=== PATIENT | female | born 1950 | race Caucasian/White ===

== ENCOUNTER 2023-04-08 10:29 | Observation (INO) | payer MEDICARE, OTHER, SELFPAY ==
--- NOTE | ~2023-04-08 | CT_ITS ---
EXAMINATION: CT ABDOMEN AND PELVIS WITHOUT CONTRAST CLINICAL INFORMATION: Right lower quadrant pain. COMPARISON: None available. TECHNIQUE: Multidetector volumetric imaging was performed from the superior aspect of the liver through the pubic symphysis. Sagittal and coronal reformatted images were obtained on the technologist's workstation. Patient reports allergy to intravenous contrast. This CT examination was performed using dose optimization techniques as appropriate, variously including the following: *Automated exposure control *Adjustment of mA and/or kV according to patient size (this includes techniques or standardized protocols for targeted exams where dose is matched to indication/reason for exam; i.e. extremities or head) *Use of iterative reconstruction technique DLP: 717 mGy-cm FINDINGS: LUNG BASES: 4 mm groundglass nodule right lower lobe on image 2 of series 8. LIVER, GALLBLADDER, AND BILIARY TREE: The noncontrast liver is normal in size and contour. No biliary ductal dilatation is present. The gallbladder is surgically absent. PANCREAS: Unremarkable. SPLEEN: Unremarkable. ADRENAL GLANDS: Unremarkable. KIDNEYS AND URETERS: The kidneys are symmetric in size. No renal calculus. Left renal cysts. No further routine imaging follow-up is needed. No hydronephrosis. No perinephric stranding. BLADDER: Unremarkable. GASTROINTESTINAL TRACT: Small and large bowel loops are of normal caliber. No small bowel obstruction. Diverticular disease of the colon. ABDOMINAL WALL: Asymmetric expansion and hyperdensity within the right rectus abdominis muscle measuring 2.7 x 4.8 cm transaxially. This may represent a rectus sheath hematoma. LYMPH NODES: No bulky lymphadenopathy. VASCULAR: Normal caliber abdominal aorta. There is an infrarenal IVC filter in place. PELVIC VISCERA: Cervical nabothian cysts. OSSEOUS STRUCTURES: No destructive bone lesions. CT/CT abdomen pelvis wo IV con IMPRESSION: Probable right rectus sheath hematoma measuring 2.7 x 4.8 cm. Advise clinical correlation and follow-up imaging.
[2023-04-08 11:01] VITALS: BP 170/72; PULSE 89; RESP 17; TEMP 36.3; O2SAT 94; BMI 34.1
--- NOTE | 2023-04-08 11:04 | ED.GENADULT ---
HPI - General Adult General Chief complaint: Abdominal Pain Stated complaint: R side abd pain Time Seen by Provider: 04/08/23 14:18 Source: patient, family, RN notes reviewed and old records reviewed Mode of arrival: ambulatory History of Present Illness HPI narrative: 72-year-old female with past medical history of appendectomy, cholecystectomy, on Coumadin for DVT s/p IVC filter, presenting to the ED complaining of RLQ abdominal pain x4 days, worsening today w/palpable lump. Admits to upper respiratory symptoms last week with persistent cough. Denies injury/trauma or fall. Denies fever/chills, nausea/vomiting, diarrhea/constipation, dysuria/hematuria. Onset (ago): day(s) Related Data Home Medications Medication Instructions Recorded Confirmed albuterol sulfate 90 mcg/actuation 2 puff inhalation QID PRN wheezing 04/08/23 04/08/23 aerosol inhaler lorazepam 1 mg tablet 1 mg PO BEDTIME PRN Insomnia 04/08/23 04/08/23 metoprolol tartrate 25 mg tablet 12.5 mg PO BEDTIME 04/08/23 04/08/23 tramadol 50 mg tablet 50 mg PO Q12H PRN pain 04/08/23 04/08/23 warfarin 5 mg tablet 2.5 mg PO SUTUTHSA@1800 04/08/23 04/08/23 warfarin 5 mg tablet 5 mg PO MOWEFR@1800 04/08/23 04/08/23 Allergies Allergy/AdvReac Type Severity Reaction Status Date / Time Iodinated Contrast Media Allergy Difficulty Verified 04/08/23 14:41 Breathing Review of Systems Review of Systems: Constitutional: No Fever, No Chills ENT/Mouth: No Ear Pain, No Nasal Congestion, No Sinus Pain, No Hoarseness, No sore throat, No Rhinorrhea, No Swallowing Difficulty Cardiovascular: No Chest Pain, No SOB Respiratory: No Cough, No Sputum, No Wheezing Gastrointestinal: No Nausea, No Vomiting, No Diarrhea, No Constipation, +Abdominal pain Genitourinary: No Dysuria, No Urinary Frequency, No Hematuria, No Urinary Incontinence/retention, No Flank Pain Musculoskeletal: No joint pain, No Myalgias, No Joint Swelling Skin: No Skin Lesions, No rash Neuro: No Weakness Yes all other systems are reviewed and are negative Constitutional: Constitutional: Reports as per [facility] Past Medical History Attestation statement: The following information was validated with the patient. Source: old records reviewed Onset Date is defined in the Problem List Problems that require an onset date and time if occurred within 24 hrs of arrival to the ED Aortic Dissection and Rupture; Neurologic impairment; Cardiopulmonary Arrest; Endotracheal Intubation; Insertion or Replacement of Mechanical Circulatory Assist Device Social History Social History Advance Directives: No Advance Directives Information Provided: Yes Physical Exam ED Vital Signs: Vital Signs - 24 hr 04/08/23 11:01 04/08/23 14:35 04/08/23 15:44 Temperature 97.4 F Pulse Rate 89 Respiratory Rate 17 16 15 Blood Pressure 170/72 H Pulse Oximetry 94 Oxygen Delivery Method Room Air BMI result Body Mass Index 34.1 Const General: cooperative, healthy appearing and no acute distress Orientation/consciousness: patient oriented x3 Limitations: no limitations HENMT Head: Yes normal to inspection and Yes atraumatic Ears: hearing grossly normal bilaterally General nose exam: Normal external nose present Face and sinus: Yes normal facial exam Eyes General: appearance normal, both eyes and all related structures EOM: EOMs intact bilaterally Neck Neck: Yes normal visual inspection and Yes no meningeal signs Resp Effort & Inspection: normal respiratory effort and no respiratory distress Auscultation: clear to auscultation bilaterally Cardio Rate: regular rate Heart sounds: S1 normal heart sound present and S2 normal heart sound present GI Inspection: Yes normal to inspection Palpation (GI): Soft to palpation, Tenderness to palpation present (GI) in the RLQ and other (+palpable lump), no guarding and not rigid Skin Rashes: no rashes Wounds: no wounds Neuro General: patient oriented x3, tone normal and no meningeal signs Cranial nerves: Yes CN's II-XII intact bilaterally Gait exam (Neuro): Normal gait present Extrem General: Yes normal to inspection Course Course Course Narrative: RME performed by Alejandra Dunbar PA-C. Patient is a 72 year old assigned female at presenting to the emergency department with RLQ abdominal pain. Patient has a history of appendectomy and cholecystectomy. Detailed physical exam and review of systems are deferred to the psychiatric clinician. Labs ordered. Patient placed back in the waiting room pending room availability and results. -labs reassuring, no leukocytosis. INR 2.8 -UA contaminated however appears infected > will give empiric IV Rocephin CT abdomen pelvis wo IV con IMPRESSION: Probable right rectus sheath hematoma measuring 2.7 x 4.8 cm. Advise clinical correlation and follow-up imaging > case discussed with General surgery, Dr. Carranza states hematoma is contained in non operative management at this time. Patient is still in pain, plan to admit for further management Medications Administered Discontinued Medications Generic Name Dose Route Start Last Admin Trade Name Freq PRN Reason Stop Dose Admin Sodium Chloride 1,000 mls @ 999 mls/hr 04/08/23 14:30 04/08/23 14:39 Ns IV 04/08/23 15:30 999 mls/hr .Q1H1M [place] Administration Ceftriaxone Sodium 1 gm/ 50 mls @ 100 mls/hr 04/08/23 14:19 04/08/23 16:25 Sodium Chloride IV 04/08/23 14:48 Infused ONCE ONE Infusion Morphine Sulfate 2 mg 04/08/23 14:24 04/08/23 14:35 Morphine Sulfate 2 Mg/Ml Cartridge IVPUSH 04/08/23 14:25 2 mg ONCE ONE Administration Protocol Morphine Sulfate 2 mg 04/08/23 15:24 04/08/23 15:44 Morphine Sulfate 2 Mg/Ml Cartridge IVPUSH 04/08/23 15:25 2 mg ONCE ONE Administration Protocol Medical Decision Making Medical Decision Making MDM Narrative: 72-year-old female with past medical history of appendectomy, cholecystectomy, on Coumadin for DVT s/p IVC filter, presenting to the ED complaining of RLQ abdominal pain x4 days, worsening today w/palpable lump. On exam vital signs stable, NAD, appears very uncomfortable, tearful, abdomen soft with RLQ palpable lump with exquisite tenderness. No overlying erythema, no fluctuance/induration. Concern for incarcerated/strangulated hernia vs colitis/diverticulitis. Lower suspicion for pancreatitis, renal stone/pyelo. Lower suspicion for ischemic bowel at this time Plan: Labs, UA, lactic/blood cultures, CT, IV pain medication Please refer to course for remaining clinical decision making, interpretation of labs/imaging results, and discussions with consultants and/or family members. Differential Diagnosis Differential Diagnoses: The differential diagnosis associated with the presentation includes As above Admission/Observation Consideration of admission/observation: Escalation of care including admission/observation considered Lab Data MDM Lab Attestation statement: I reviewed the patient's lab results. 04/08/23 11:19 04/08/23 11:19 Labs: Lab Results 04/08/23 04/08/23 Range/Units 11:19 14:35 WBC 8.0 (4.8-10.8) X10*3/uL RBC 4.73 (4.20-5.50) X10*6/uL Hgb 13.4 (12.0-16.0) g/dl Hct 40.2 (37.0-47.0) % MCV 85.0 (80.0-98.0) fL MCH 28.3 (27.0-33.0) pg MCHC 33.3 (31.0-35.0) g/dl RDW 13.2 (11.0-16.0) % Plt Count 187 (160-400) X10*3/uL MPV 9.6 (9.4-12.3) fL Immature Gran % (Auto) 0.3 (0.0-0.4) % Neut % (Auto) 63.0 (45-73) % Lymph % (Auto) 24.0 (20-40) % [place] % (Auto) 10.1 (2-11) % Eos % (Auto) 1.6 (0-4) % Baso % (Auto) 1.0 (0-2) % Lymph # (Auto) 1.9 (1.2-4.9) X10*3/uL [place] # (Auto) 0.8 (0.1-1.2) X10*3/uL Eos # (Auto) 0.1 (0.0-0.4) X10*3/uL Baso # (Auto) 0.1 (0.0-0.2) X10*3/uL Abs Immat Gran (auto) 0.02 (0.00-0.03) X10*3/uL Absolute Neuts (auto) 5.0 (2.0-8.3) x10*3/uL Absolute Nucleated RBC 0.000 (0.0-0.012) X10*3/uL Nucleated RBC % (auto) 0.0 (0.0-0.2) /100WBC PT 34.1 H (11.1-13.3) SEC INR 2.8 H (0.9-1.1) Sodium 140 (135-145) mmol/L Potassium 3.9 (3.3-5.1) mmol/L Chloride 106 (96-108) mmol/L Carbon Dioxide 24 (22-29) mmol/L Anion Gap 14 (12-20) BUN 13 (9-16) mg/dL Creatinine 0.94 (0.5-1.4) mg/dL Estim Creat Clear Calc 59.8 Estimated GFR 59 Random Glucose 103 (60-115) mg/dL Lactic Acid 1.0 (0.5-2.0) mmol/L Calcium 9.0 (8.4-10.2) mg/dL Magnesium 2.3 (1.6-2.6) mg/dL Total Bilirubin 0.5 (0.0-1.0) mg/dL AST 21 (5-31) U/L ALT 30 (0-31) U/L Alkaline Phosphatase 72 (39-117) U/L Total Protein 7.3 (6.5-8.0) g/dL Albumin 3.9 (3.5-5.0) g/dL Lipase 21 (8-78) U/L Urine Color Yellow Urine Appearance Turbid Urine pH 5.5 (5.0-9.0) Ur Specific [place] 1.020 (1.005-1.025) Urine Protein Trace (Neg-Trace) mg/dL Urine Glucose (UA) Negative (Negative) mg/dL Urine Ketones Trace (Negative) mg/dL Urine Blood Trace H (Negative) Urine Nitrite Positive H (Negative) Ur Leukocyte Esterase Large (3+) H (Negative) Urine RBC 0-2 (0-2) /HPF Urine WBC >50 H (0-5) /HPF Ur Squamous Epith Cells 11-20 (0-2) /HPF Urine Bacteria 4+ (None Seen) Hyaline Casts 3-5 (0-2) /LPF Independent Interpretation I performed an independent interpretation of an: CT Scan Radiology Impression Discussion of test interpretation with radiology: I have reviewed the radiologist's reading. Independent Historian Clinical information obtained from an independent historian. History obtained from or confirmed by: Other (daughter) External Record Review External record reviewed: Inpatient record, Office record, Outpatient record, Prior outpatient labs, Prior outpatient radiology, Primary care record and Outside ED record Tests considered The following testing was considered but not selected: As above Prescription Management I considered prescription management with: Pain Medication Critical Care Time Critical Care Time Critical Care Time: Yes Total Critical Care Time: 35 Attestation: I have personally provided critical care time exclusive of time spent on separately billable procedures. Time includes review of lab data, radiology results, discussion with consultants, and monitoring for potential decompensation. Intervention performed as documented. Discharge Plan Discharge Clinical Impression: Rectus sheath hematoma, Acute UTI Patient Disposition: Admitted As Inpatient
[2023-04-08 11:43] LABS: Alanine Aminotransferase 30 U/L (0-31); Albumin Level 3.9 g/dL (3.5-5.0); Alkaline Phosphatase 72 U/L (39-117); Anion Gap 14 (12-20); Aspartate Amino Transferase 21 U/L (5-31); Bilirubin Total 0.5 mg/dL (0.0-1.0); Blood Urea Nitrogen 13 mg/dL (9-16); Carbon Dioxide 24 mmol/L (22-29); Chloride 106 mmol/L (96-108); Creatinine Clr Calc Pharmacy 59.8; Estimated Glomerular Filt Rate 59; Glucose Random 103 mg/dL (60-115); Magnesium 2.3 mg/dL (1.6-2.6); Potassium 3.9 mmol/L (3.3-5.1); Sodium 140 mmol/L (135-145); Total Protein 7.3 g/dL (6.5-8.0)
[2023-04-08 14:35] VITALS: RESP 16
[2023-04-08 15:44] VITALS: RESP 15
--- NOTE | 2023-04-08 16:22 | P.HPHOSP_ITS ---
History of Present Illness Date of Service: 04/08/23 Chief Complaint: abdominal pain 72 year old female with 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 No fever, no diarrhea. CT of abdomen and pelvis in ED show a Probable right rectus sheath hematoma measuring 2.7 x 4.8 cm. CBC is normal, INR is 2.8 Review of Systems 2 Review of Systems: Gen: no fever Resp: no sob, no cough CV: no chest, no [place], no leg edema GI: No n/v,+ abd pain Neuro: No confusion PMFSH Social History Smoked in Last 30 Days: No Use of substances other than those prescribed or required for medical reasons: No Advance Directives: Yes Advance Directives Information Provided: Yes Advance Directives on File: Yes Advance Directives Date on File: 04/08/23 Meds Allergies Allergy/AdvReac Type Severity Reaction Status Date / Time Iodinated Contrast Media Allergy Difficulty Verified 04/08/23 14:41 Breathing Home Medications Medication Instructions Recorded Confirmed Last Taken Type albuterol sulfate 90 mcg/actuation 2 puff inhalation QID PRN wheezing 04/08/23 04/08/23 Unknown History aerosol inhaler lorazepam 1 mg tablet 1 mg PO BEDTIME PRN Insomnia 04/08/23 04/08/23 Unknown History metoprolol tartrate 25 mg tablet 12.5 mg PO BEDTIME 04/08/23 04/08/23 04/07/22 History tramadol 50 mg tablet 50 mg PO Q12H PRN pain 04/08/23 04/08/23 Unknown History warfarin 5 mg tablet 2.5 mg PO SUTUTHSA@1800 04/08/23 04/08/23 04/07/22 History warfarin 5 mg tablet 5 mg PO MOWEFR@1800 04/08/23 04/08/23 04/07/22 History Physical Exam 2 Vital Signs and Narrative: Vital Signs: Last Vital Signs Temp 97.4 F 04/08/23 11:01 Pulse 89 04/08/23 11:01 Resp 15 04/08/23 15:44 BP 170/72 H 04/08/23 11:01 Pulse Ox 94 04/08/23 11:01 O2 Del Method Room Air 04/08/23 11:01 BMI result Body Mass Index 34.1 Const: Other: Constitutional: Alert, in no distress, overweight. Mental Status: Oriented to person, place and time. Eyes: Pupils are equal, round and reactive to light. Ear, Nose and Throat: Oropharynx clear, mucous membranes moist. Ears and nose without eformities. Trachea midline. Respiratory: Clear to auscultation. No wheezing, rales or rhonchi. Cardiovascular: S1 S2 regular. No murmurs, rubs or gallops. Gastrointestinal: Abdomen soft, lower abdomen tenderness texture of lump, no bruse, non-distended. Normal bowel sounds.? Neurologic: Cranial nerves II-XII grossly intact. No focal neurological deficits. Moves all extremities spontaneously.? Skin: No rashes or lesions.? Musculoskeletal: No cyanosis or clubbing. Psychiatric: Normal mood and affect? Results Labs 04/09/23 08:32 04/08/23 11:19 Labs: Laboratory Results - last 24 hr 04/08/23 04/08/23 11:19 14:35 MCV 85.0 MCH 28.3 MCHC 33.3 RDW 13.2 Plt Count 187 MPV 9.6 Immature Gran % (Auto) 0.3 Neut % (Auto) 63.0 Lymph % (Auto) 24.0 [place] % (Auto) 10.1 Eos % (Auto) 1.6 Baso % (Auto) 1.0 Lymph # (Auto) 1.9 [place] # (Auto) 0.8 Eos # (Auto) 0.1 Baso # (Auto) 0.1 Abs Immat Gran (auto) 0.02 Absolute Neuts (auto) 5.0 Absolute Nucleated RBC 0.000 Nucleated RBC % (auto) 0.0 PT 34.1 H INR 2.8 H Anion Gap 14 Estim Creat Clear Calc 59.8 Estimated GFR 59 Random Glucose 103 Lactic Acid 1.0 Calcium 9.0 Magnesium 2.3 Total Bilirubin 0.5 AST 21 ALT 30 Alkaline Phosphatase 72 Total Protein 7.3 Albumin 3.9 Lipase 21 Urine Color Yellow Urine Appearance Turbid Urine pH 5.5 Ur Specific [place] 1.020 Urine Protein Trace Urine Glucose (UA) Negative Urine Ketones Trace Urine Blood Trace H Urine Nitrite Positive H Ur Leukocyte Esterase Large (3+) H Urine RBC 0-2 Urine WBC >50 H Ur Squamous Epith Cells 11-20 Urine Bacteria 4+ Hyaline Casts 3-5 Imaging Radiologist's Impressions: Impressions Abdomen/Pelvis CT 04/08/23 14:53 IMPRESSION: Probable right rectus sheath hematoma measuring 2.7 x 4.8 cm. Advise clinical correlation and follow-up imaging. Assessment and Plan (1) Rectus sheath hematoma: Status: Acute (2) Acute UTI: Status: Acute Plan Rectal sheet hematoma 2.7 x 4.8, no anemia.. likely from cough -hold coumadin, follow CBC, if enalerging hematoma consult surgery and reverse INR, morphine for pain Abdominal pain d/t above, morphine or dilaudid PRn Uncomplicated UTI got Ceftriaxone in ED, will continue oral Ceftin 250 bid tomorrow dvt prophylaxis INR is high, no heparin or lovenox obs until tomorrow Quality Stroke Does the patient have a stroke diagnosis?: No VTE Prior VTE?: Yes VTE Risk Level:: Medical - moderate - high VTE Device Contraindication: Treatment Not Indicated VTE Drug Contraindication: Treatment Not Indicated
[2023-04-08] MEDS: HYDROmorphone HCl 0.5 MG/0.5 ML SYRINGE IVPUSH (18:21)
--- NOTE | 2023-04-08 19:09 | PC.NURSE ---
PT medicated as per MAR> placed purewick due to pain while walking and narcotic. Report and handoff given to JASPER Mccormack
--- NOTE | 2023-04-08 21:10 | MHC.CM.ED ---
CM met with patient at her request to complete a HCP. Pt requests 2 daughter be made HCP, as her has had a stroke and doesn't process things well. HCP reviewed, signed, and completed. Copies given. Uploaded into [employer] and [employer].
--- NOTE | 2023-04-08 21:36 | PC.NURSE ---
this nurse assumed care of pt at 2100. met with pt , pt complians of pain, requests APAP. pt also stated that she hasnt slept in days, is her husbands caregiver who recently suffered a stroke, pt son is home. offered prn med for insomnia, pt willing to try ativan.
[2023-04-08] MEDS: LORazepam 1 MG TABLET PO (21:40)
[2023-04-08] MEDS: Metoprolol Tartrate 12.5 MG HALFTAB PO (21:44)
[2023-04-08 21:46] VITALS: BP 165/52; PULSE 64; RESP 14; TEMP 37; O2SAT 95
--- NOTE | 2023-04-08 23:40 | MHC.EDTECH ---
This tech took over care of patient at 2300, hourly rounds completed,patient has a pure-wick in place done by the pervious shift,patient is clean and dry. Belonging list completed.
[2023-04-09] MEDS: 0.9 % Sodium Chloride Flush 3 ML SYRINGE IVFLUSH ×2 (00:21→07:25)
[2023-04-09] MEDS: HYDROmorphone HCl 0.5 MG/0.5 ML SYRINGE IVPUSH ×4 (00:22→21:16)
--- NOTE | 2023-04-09 00:24 | PC.NURSE ---
Pt medicated for 8/10 pain with Dilaudid, resting comfortably in bed. Aware of plan to admit.
[2023-04-09 01:40] VITALS: RESP 16
--- NOTE | 2023-04-09 03:21 | MHC.EDTECH ---
Hourly rounds completed,patient is sleeping resp. rate WNL,call lui in reach
--- NOTE | 2023-04-09 05:26 | MHC.EDTECH ---
Patient ambulated with a one assist to the bathroom with a steady gait, hourly rounds and vitals completed.
[2023-04-09 05:33] VITALS: BP 154/59; PULSE 70; RESP 18; TEMP 36.7; O2SAT 95
--- NOTE | 2023-04-09 05:43 | PC.NURSE ---
Pt ambulating to/from the bathroom with a steady gait. Plan to transfer to Overflow.
--- NOTE | 2023-04-09 05:53 | PC.NURSE ---
Nurse to nurse given to Susanna in [place].
[2023-04-09 06:28] VITALS: BP 140/80; PULSE 69; RESP 18; TEMP 36.4; O2SAT 97
[2023-04-09] MEDS: ondansetron HCL 4 MG/2 ML VIAL IVPUSH ×2 (06:48→12:37)
--- NOTE | 2023-04-09 07:14 | PC.NURSE ---
Patient arrived to ED overflow from main ED at 06:20 this morning for observation of rectus sheath hematoma after reported severe cough. On initial interaction pt stated she has had a cold and this cough since Eli and it is productive of yellow phlegm. Pt is A&Ox4. VSS on arrival. Denies dizziness, h/a, sob, chest pain. Denies pain at this time. Medicated with prn zofran for n/v that occured during transport here. Emesis bag provided, no further n/v. Covering Dr. Brady notified of assessment with orders for stat Covid/RSV/Flu swab that was sent. Pt and pt's daughter present at bedside educated on respiratory testing and precautions, plan of care and mask provided to daughter. Door closed. PIV access x2 in place. Safety measures and call lui in place. Handoff report given to oncoming RN 07:00.
--- NOTE | 2023-04-09 07:34 | PHA.MEDREC ---
Pharmacy Consult ? Medication Reconciliation Pharmacy has completed the medication reconciliation. Completed by Soledad Isaac
[2023-04-09 07:49] LABS: Influenza A PCR NEGATIVE (Negative); Influenza B PCR NEGATIVE (Negative); Resp Syncy Virus RNA Qual PCR POSITIVE (Negative); SARS COV2 PCR INHOUSE NEGATIVE (Negative)
[2023-04-09] MEDS: cefuroxime axetiL 250 MG TABLET PO ×2 (09:22→21:15)
[2023-04-09] MEDS: guaiFENesin 100 MG/5 ML LIQUID PO (09:23)
[2023-04-09 09:26] LABS: Hematocrit 37.7 % (37.0-47.0); Hemoglobin 12.4 g/dl (12.0-16.0); Mean Corpuscular HGB Conc 32.9 g/dl (31.0-35.0); Mean Corpuscular Hemoglobin 28.6 pg (27.0-33.0); Mean Corpuscular Volume 86.9 fL (80.0-98.0); Mean Platelet Volume 10.3 fL (9.4-12.3); Platelet Count 157 X10*3/uL (160-400); Red Blood Count 4.34 X10*6/uL (4.20-5.50); Red Cell Distribution Width 13.3 % (11.0-16.0); White Blood Count 5.7 X10*3/uL (4.8-10.8)
--- NOTE | 2023-04-09 09:28 | P.PNIM_ITS ---
Subjective Subjective Date of Service: 04/09/23 <Theresa Borgesgurvinder - Last Filed: 04/09/23 09:48> 04/09/23 <Juan Francisco Sewell MD - Last Filed: 04/09/23 10:28> Interval History: F/U on rectus sheath hematoma Patient reports overall improved. Pain better with hydromorphone. Some N/V this morning; improved with odansetron. <Theresa Morales Wild - Last Filed: 04/09/23 09:48> F/U on rectus sheath hematoma Patient reports overall improved. Pain better with hydromorphone. Some N/V this morning; improved with odansetron. feels constipated <Juan Francisco Sewell MD - Last Filed: 04/09/23 10:28> Review of Systems abd pain, cough, constipation <Juan Francisco Sewell MD - Last Filed: 04/09/23 10:28> Physical Exam 2 Vital Signs: Vital Signs: Last Vital Signs Temp 97.5 F 04/09/23 06:28 Pulse 69 04/09/23 06:28 Resp 18 04/09/23 06:28 BP 140/80 H 04/09/23 06:28 Pulse Ox 97 04/09/23 06:28 O2 Del Method Room Air 04/09/23 06:28 BMI result Body Mass Index 34.1 <Theresa Rome - Last Filed: 04/09/23 09:48> Constitutional: Alert, in no distress, overweight. Mental Status: Oriented to person, place and time. Respiratory: Clear to auscultation. No wheezing, rales or rhonchi. Cardiovascular: S1 S2 regular. No murmurs, rubs or gallops. Gastrointestinal: Abdomen soft, RUQ and RLQ tender to palpation, no bruising, non-distended. BS+ x 4 quadrants? Neurologic: Cranial nerves II-XII grossly intact. No focal neurological deficits. Moves all extremities spontaneously.? Psychiatric: Normal mood and affect? <Theresa Rome - Last Filed: 04/09/23 09:48> Constitutional: Alert, in no distress, overweight. Mental Status: Oriented to person, place and time. Respiratory: Clear to auscultation. No wheezing, rales or rhonchi. Cardiovascular: S1 S2 regular. No murmurs, rubs or gallops. Gastrointestinal: Abdomen soft, RUQ and RLQ tender to palpation, no bruising, non-distended. BS+ x 4 quadrants? Neurologic: Cranial nerves II-XII grossly intact. No focal neurological deficits. Moves all extremities spontaneously.? Psychiatric: Normal mood and affect? <Juan Francisco Sewell MD - Last Filed: 04/09/23 10:28> Objective Data Active Medications Acetaminophen (Acetaminophen 325 Mg Tablet) 650 mg PO Q6H PRN PRN Reason: Pain, Mild (Pain Scale 1-3) Albuterol Sulfate (Albuterol Sulfate 90 Mcg 8 Gm Inhaler) 2 puff INHALE QID PRN PRN Reason: wheezing Cefuroxime Axetil (Cefuroxime Axetil 250 Mg Tablet) 250 mg PO BID [place] Last Admin: 04/09/23 09:22 Dose: 250 mg Documented By: CELSA Guaifenesin (Guaifenesin 100 Mg/5 Ml Liquid) 5 ml PO Q6H PRN PRN Reason: Cough Last Admin: 04/09/23 09:23 Dose: 5 ml Documented By: CELSA Hydromorphone HCl (Hydromorphone Hcl 0.5 Mg/0.5 Ml Syringe) 0.5 mg IVPUSH Q6H PRN; Protocol PRN Reason: Pain, Severe (Pain Scale 7-10) Last Admin: 04/09/23 07:25 Dose: 0.5 mg Documented By: CELSA Lorazepam (Lorazepam 1 Mg Tablet) 1 mg PO BEDTIME PRN PRN Reason: Insomnia Last Admin: 04/08/23 21:40 Dose: 1 mg Documented By: ROHIT Melatonin (Melatonin 3 Mg Tablet) 3 mg PO BEDTIME PRN PRN Reason: Insomnia Metoprolol Tartrate (Metoprolol Tartrate 12.5 Mg Halftab) 12.5 mg PO BEDTIME [facility]; Protocol Last Admin: 04/08/23 21:44 Dose: 12.5 mg Documented By: ROHIT Ondansetron HCl (Ondansetron Hcl 4 Mg/2 Ml Vial) 4 mg IVPUSH Q8H PRN PRN Reason: Nausea and Vomiting Last Admin: 04/09/23 06:48 Dose: 4 mg Documented By: LOKI Sodium Chloride (0.9 % Sodium Chloride Flush 3 Ml Syringe) 3 ml IVFLUSH [facility] Last Admin: 04/09/23 07:25 Dose: 3 ml Documented By: CELSA <Theresa Rome - Last Filed: 04/09/23 09:48> Labs CBC & Chem 7: 04/09/23 08:32 04/08/23 11:19 <Theresa Rome - Last Filed: 04/09/23 09:48> Labs: Laboratory Results - last 24 hr 04/08/23 04/08/23 04/09/23 11:19 14:35 07:04 MCV 85.0 MCH 28.3 MCHC 33.3 RDW 13.2 Plt Count 187 MPV 9.6 Immature Gran % (Auto) 0.3 Neut % (Auto) 63.0 Lymph % (Auto) 24.0 [place] % (Auto) 10.1 Eos % (Auto) 1.6 Baso % (Auto) 1.0 Lymph # (Auto) 1.9 [place] # (Auto) 0.8 Eos # (Auto) 0.1 Baso # (Auto) 0.1 Abs Immat Gran (auto) 0.02 Absolute Neuts (auto) 5.0 Absolute Nucleated RBC 0.000 Nucleated RBC % (auto) 0.0 PT 34.1 H INR 2.8 H Anion Gap 14 Estim Creat Clear Calc 59.8 Estimated GFR 59 Random Glucose 103 Lactic Acid 1.0 Calcium 9.0 Magnesium 2.3 Total Bilirubin 0.5 AST 21 ALT 30 Alkaline Phosphatase 72 Total Protein 7.3 Albumin 3.9 Lipase 21 Urine Color Yellow Urine Appearance Turbid Urine pH 5.5 Ur Specific [place] 1.020 Urine Protein Trace Urine Glucose (UA) Negative Urine Ketones Trace Urine Blood Trace H Urine Nitrite Positive H Ur Leukocyte Esterase Large (3+) H Urine RBC 0-2 Urine WBC >50 H Ur Squamous Epith Cells 11-20 Urine Bacteria 4+ Hyaline Casts 3-5 Influenza Type A (PCR) NEGATIVE Influenza Type B (PCR) NEGATIVE RSV RNA Qual (PCR) POSITIVE A SARS-CoV-2 RNA (RT-PCR) NEGATIVE 04/09/23 08:32 MCV 86.9 MCH 28.6 MCHC 32.9 RDW 13.3 Plt Count 157 L MPV 10.3 Immature Gran % (Auto) Neut % (Auto) Lymph % (Auto) [place] % (Auto) Eos % (Auto) Baso % (Auto) Lymph # (Auto) [place] # (Auto) Eos # (Auto) Baso # (Auto) Abs Immat Gran (auto) Absolute Neuts (auto) Absolute Nucleated RBC 0.000 Nucleated RBC % (auto) 0.0 PT INR Anion Gap Estim Creat Clear Calc Estimated GFR Random Glucose Lactic Acid Calcium Magnesium Total Bilirubin AST ALT Alkaline Phosphatase Total Protein Albumin Lipase Urine Color Urine Appearance Urine pH Ur Specific [place] Urine Protein Urine Glucose (UA) Urine Ketones Urine Blood Urine Nitrite Ur Leukocyte Esterase Urine RBC Urine WBC Ur Squamous Epith Cells Urine Bacteria Hyaline Casts Influenza Type A (PCR) Influenza Type B (PCR) RSV RNA Qual (PCR) SARS-CoV-2 RNA (RT-PCR) <Theresa Borgesgurvinder - Last Filed: 04/09/23 09:48> Microbiology Microbiology Results: Microbiology 04/08/23 Unknown Urine Culture - Preliminary Urine clean catch - Urine mckinney top Culture in progress. 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 Rectus sheath hematoma -- CBC normal, INR @ 2.4 from 2.8 yesterday. Hold coumadin. Consult surgery. Hydromorphone for pain. Uncomplicated UTI -- Ceftin 250mg PO BID for 5 days. Nausea/vomiting -- Probably d/t pain meds. Continue odansetron DVT -- No prophylaxis at this time d/t elevated INR and rectus hematoma. 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 Rectus sheath hematoma -- CBC normal, INR @ 2.4 from 2.8 yesterday. Hold coumadin. Consult surgery. Hydromorphone for pain. Uncomplicated UTI -- Ceftin 250mg PO BID for 5 days. Nausea/vomiting -- Probably d/t pain meds. Continue odansetron RSV/cough, no hypoxia, symptomatic treatment, Robitussin AC for cough Constipation--bowel regiment DVT -- No prophylaxis at this time d/t elevated INR and rectus hematoma. <Juan Francisco Sewell MD - Last Filed: 04/09/23 10:28> Quality Stroke Does the patient have a stroke diagnosis?: No <Theresa Rome - Last Filed: 04/09/23 09:48> VTE Prior VTE?: Yes <Theresa Rome - Last Filed: 04/09/23 09:48> VTE Risk Level:: Medical - moderate - high <Theresa Rome - Last Filed: 04/09/23 09:48> VTE Device Contraindication: Treatment Not Indicated <Theresa Rome - Last Filed: 04/09/23 09:48> VTE Drug Contraindication: Treatment Not Indicated <Theresa Rome - Last Filed: 04/09/23 09:48>
[2023-04-09 09:33] LABS: INTERNATIONAL NORM RATIO 2.4 (0.9-1.1); Prothrombin Time 28.9 SEC (11.1-13.3)
[2023-04-09] MEDS: Acetaminophen 325 MG TABLET 650 MG PO (11:29)
[2023-04-09] MEDS: Docusate Sodium 100 MG CAPSULE PO ×2 (11:29→21:16)
--- NOTE | 2023-04-09 12:37 | PC.NURSE ---
Pt is very nauseous and uncomfortable. per telephone approval from BYRON Black to give PRN zofran early.
[2023-04-09 14:05] VITALS: BP 143/54; PULSE 69; RESP 16; TEMP 36.6; O2SAT 93
[2023-04-09 20:51] VITALS: BP 142/60; PULSE 72; RESP 18; TEMP 36.4; O2SAT 97
[2023-04-09] MEDS: Metoprolol Tartrate 12.5 MG HALFTAB PO (21:15)
--- NOTE | 2023-04-09 22:43 | PM.CNGS ---
History of Present Illness Consult details Consult date: 04/09/23 Reason for consult: other Requesting physician: Juan Francisco Sewell Narrative: Pt is a 72 year old female with some coughing issues and developed some abdominal pain and lump in right lower quadrant. CT scan showing rectus sheet hematoma 3x5cm. Pt is anticoagulated for dvt issues and has inr of 2.4 on Coumadin. Admitted for observation and treatment for UTI Today H and H is stable at 12. Review of Systems Review of Systems: Yes all other systems are reviewed and are negative [facility] Social History Social History Advance Directives Date on File: 04/08/23 Meds Allergies Allergy/AdvReac Type Severity Reaction Status Date / Time Iodinated Contrast Media Allergy Difficulty Verified 04/08/23 14:41 Breathing Active Medications: Current Medications Acetaminophen (Acetaminophen 325 Mg Tablet) 650 mg PO Q6H PRN PRN Reason: Pain, Mild (Pain Scale 1-3) Last Admin: 04/09/23 11:29 Dose: 650 mg Albuterol Sulfate (Albuterol Sulfate 90 Mcg 8 Gm Inhaler) 2 puff INHALE QID PRN PRN Reason: wheezing Cefuroxime Axetil (Cefuroxime Axetil 250 Mg Tablet) 250 mg PO BID [facility] Last Admin: 04/09/23 21:15 Dose: 250 mg Docusate Sodium (Docusate Sodium 100 Mg Capsule) 100 mg PO BID [facility] Last Admin: 04/09/23 21:16 Dose: 100 mg Guaifenesin (Guaifenesin 100 Mg/5 Ml Liquid) 5 ml PO Q6H PRN PRN Reason: Cough Last Admin: 04/09/23 09:23 Dose: 5 ml Hydromorphone HCl (Hydromorphone Hcl 0.5 Mg/0.5 Ml Syringe) 0.5 mg IVPUSH Q6H PRN; Protocol PRN Reason: Pain, Severe (Pain Scale 7-10) Last Admin: 04/09/23 21:16 Dose: 0.5 mg Lorazepam (Lorazepam 1 Mg Tablet) 1 mg PO BEDTIME PRN PRN Reason: Insomnia Last Admin: 04/08/23 21:40 Dose: 1 mg Magnesium Hydroxide (Milk Of Magnesia 30 Ml Oral.Susp) 30 ml PO BID PRN PRN Reason: Constipation Melatonin (Melatonin 3 Mg Tablet) 3 mg PO BEDTIME PRN PRN Reason: Insomnia Metoprolol Tartrate (Metoprolol Tartrate 12.5 Mg Halftab) 12.5 mg PO BEDTIME [facility]; Protocol Last Admin: 04/09/23 21:15 Dose: 12.5 mg Ondansetron HCl (Ondansetron Hcl 4 Mg/2 Ml Vial) 4 mg IVPUSH Q8H PRN PRN Reason: Nausea and Vomiting Last Admin: 04/09/23 12:37 Dose: 4 mg Polyethylene Glycol (Polyethylene Glycol 3350 17 Gm Powd.Pack) 17 gm PO DAILY PRN PRN Reason: Constipation Sodium Chloride (0.9 % Sodium Chloride Flush 3 Ml Syringe) [facility] Last Admin: 04/09/23 16:27 Dose: Not Given Home Medications Medication Instructions Recorded Confirmed Last Taken Type albuterol sulfate 90 mcg/actuation 2 puff inhalation QID PRN wheezing 04/08/23 04/08/23 Unknown History aerosol inhaler lorazepam 1 mg tablet 1 mg PO BEDTIME PRN Insomnia 04/08/23 04/08/23 Unknown History metoprolol tartrate 25 mg tablet 12.5 mg PO BEDTIME 04/08/23 04/08/23 04/07/22 History warfarin 5 mg tablet 2.5 mg PO SUTUTHSA@1800 04/08/23 04/08/23 04/07/22 History warfarin 5 mg tablet 5 mg PO MOWEFR@1800 04/08/23 04/08/23 04/07/22 History Physical Exam Vital Signs: Vital Signs: Last Vital Signs Temp 97.6 F 04/09/23 20:51 Pulse 72 04/09/23 20:51 Resp 18 04/09/23 20:51 BP 142/60 H 04/09/23 20:51 Pulse Ox 97 04/09/23 20:51 O2 Del Method Room Air 04/09/23 20:51 BMI result Body Mass Index 34.1 Skin: Other: pt with a small lump but very tender on abdominal wall under a bit of a pannus on left lower abdomen - no bruising noted abdomen otherwise benign Results Labs 04/10/23 06:31 04/08/23 11:19 Labs: Abnormal lab results 01/09/24 01/09/24 Range/Units 07:04 08:32 Plt Count 157 L (160-400) X10*3/uL PT 28.9 H (11.1-13.3) SEC INR 2.4 H (0.9-1.1) RSV RNA Qual (PCR) POSITIVE A (Negative) Short CBC 04/09/23 Range/Units 08:32 WBC 5.7 (4.8-10.8) X10*3/uL Hgb 12.4 (12.0-16.0) g/dl Hct 37.7 (37.0-47.0) % Plt Count 157 L (160-400) X10*3/uL Urine 04/08/23 Range/Units 11:19 Urine Color Yellow Urine Appearance Turbid Urine pH 5.5 (5.0-9.0) Ur Specific [place] 1.020 (1.005-1.025) Urine Protein Trace (Neg-Trace) mg/dL Urine Glucose (UA) Negative (Negative) mg/dL All other labs normal. Imaging Abdomen CT scan report/results: report reviewed and image reviewed CT scan - pelvis: report reviewed and image reviewed Assessment and Plan (1) Rectus sheath hematoma: Status: Acute Plan pt anticoagulated for chronic dvt and inr ok but developed spontaneous rectus sheet bleed with collective hematoma - seemingly stable. h and h stable and pt ok. consider hold coumadin for a few days and can be seen as an outpt by surgery and resumed later once all ok. Procedures Date of Service Date of Service: 04/16/23
[2023-04-10 04:14] VITALS: BP 148/60; PULSE 77; RESP 18; TEMP 36.6; O2SAT 96
[2023-04-10] MEDS: HYDROmorphone HCl 0.5 MG/0.5 ML SYRINGE IVPUSH (04:16)
[2023-04-10 06:44] LABS: Hematocrit 37.2 % (37.0-47.0); Hemoglobin 12.3 g/dl (12.0-16.0); Mean Corpuscular HGB Conc 33.1 g/dl (31.0-35.0); Mean Corpuscular Hemoglobin 28.2 pg (27.0-33.0); Mean Corpuscular Volume 85.3 fL (80.0-98.0); Mean Platelet Volume 9.6 fL (9.4-12.3); Platelet Count 146 X10*3/uL (160-400); Red Blood Count 4.36 X10*6/uL (4.20-5.50); Red Cell Distribution Width 13.2 % (11.0-16.0); White Blood Count 5.4 X10*3/uL (4.8-10.8)
[2023-04-10] MEDS: Docusate Sodium 100 MG CAPSULE PO (08:30)
[2023-04-10] MEDS: cefuroxime axetiL 250 MG TABLET PO (08:30)
[2023-04-10] MEDS: Acetaminophen 325 MG TABLET 650 MG PO (08:32)
[2023-04-10 10:51] LABS: INTERNATIONAL NORM RATIO 2.1 (0.9-1.1); Prothrombin Time 25.7 SEC (11.1-13.3)
[2023-04-10] MEDS: oxyCODONE HCl Immed Release 5 MG TABLET PO (11:10)
--- NOTE | 2023-04-10 11:45 | P.DS_ITS ---
DS: Providers Provider Date of Service: 04/10/23 Date of admission: 04/08/23 16:19 Date of discharge: 04/10/23 Primary care physician: Tonya Brady NP Consults: 04/09/23 08:16 Consult to General Surgery Routine Consulting Provider: [facility] General Surgeons Reason for consultation: Abdominal pain, hematoma Has provider been notified: No 04/10/23 09:40 Consult to General Surgery Routine Consulting Provider: [facility] General Surgeons Reason for consultation: consult re rectus hematoma DS: Diagnosis Discharge Diagnosis (1) Rectus sheath hematoma: Status: Acute (2) Acute UTI: Status: Acute (3) RSV infection: Status: Acute DS: Summary Hospital Course Hospital Course: From the history and physical by the admitting hospitalist, Tena Sewell MD, 04/08/23: 72 year old female with 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 No fever, no diarrhea. CT of abdomen and pelvis in ED show a Probable right rectus sheath hematoma measuring 2.7 x 4.8 cm. CBC is normal, INR is 2.8 She was admitted to the hospitalist service on observation status. She has actually been coughing for approximately 2 weeks and was found to have RSV infection without hypoxia. She was started on cough suppressants. Regarding the rectus sheath hematoma, Surgery was consulted and recommended holding warfarin and being seen again in General Surgery clinic or by her PCP early next week to determine if it would be safe to resume anticoagulation. She was found to have UTI and was discharged on cefuroxime. Time Attestation Total time managing care of this patient today: 35 mintues. Discharge coordination time: Greater than 30 minutes Quality: Safe Use of Opioids Does Pt have an Active Cancer Diagnosis on the Problem List?: No Quality: Stroke Does the patient have a stroke diagnosis?: No Physical Exam Vital Signs: Vital Signs: Last Vital Signs Temp 97.9 F 04/10/23 04:14 Pulse 77 04/10/23 04:14 Resp 18 04/10/23 04:14 BP 148/60 H 04/10/23 04:14 Pulse Ox 96 04/10/23 04:14 O2 Del Method Room Air 04/10/23 04:14 BMI result Body Mass Index 34.1 Gen: in no acute distress HEENT: sclera anicteric, moist mucus membranes Neck: supple Lungs: clear to auscultation bilaterally Heart: regular rate and rhythm, no murmurs Abd: soft, midline tenderness Ext: no edema Skin: warm/well-perfused Neuro: alert and oriented x3, no focal findings Psych: appropriate affect DS: Data Data Completed and Pending Completed studies during hospitalization [Text1]: Laboratory Results WBC 5.4 X10*3/uL (4.8-10.8) 04/10/23 06:31 RBC 4.36 X10*6/uL (4.20-5.50) 04/10/23 06:31 Hgb 12.3 g/dl (12.0-16.0) 04/10/23 06:31 Hct 37.2 % (37.0-47.0) 04/10/23 06:31 MCV 85.3 fL (80.0-98.0) 04/10/23 06:31 MCH 28.2 pg (27.0-33.0) 04/10/23 06:31 MCHC 33.1 g/dl (31.0-35.0) 04/10/23 06:31 RDW 13.2 % (11.0-16.0) 04/10/23 06:31 Plt Count 146 X10*3/uL (160-400) L 04/10/23 06:31 MPV 9.6 fL (9.4-12.3) 04/10/23 06:31 Immature Gran % (Auto) 0.3 % (0.0-0.4) 04/08/23 11:19 Neut % (Auto) 63.0 % (45-73) 04/08/23 11:19 Lymph % (Auto) 24.0 % (20-40) 04/08/23 11:19 [place] % (Auto) 10.1 % (2-11) 04/08/23 11:19 Eos % (Auto) 1.6 % (0-4) 04/08/23 11:19 Baso % (Auto) 1.0 % (0-2) 04/08/23 11:19 Lymph # (Auto) 1.9 X10*3/uL (1.2-4.9) 04/08/23 11:19 [place] # (Auto) 0.8 X10*3/uL (0.1-1.2) 04/08/23 11:19 Eos # (Auto) 0.1 X10*3/uL (0.0-0.4) 04/08/23 11:19 Baso # (Auto) 0.1 X10*3/uL (0.0-0.2) 04/08/23 11:19 Abs Immat Gran (auto) 0.02 X10*3/uL (0.00-0.03) 04/08/23 11:19 Absolute Neuts (auto) 5.0 x10*3/uL (2.0-8.3) 04/08/23 11:19 Absolute Nucleated RBC 0.000 X10*3/uL (0.0-0.012) 04/10/23 06:31 Nucleated RBC % (auto) 0.0 /100WBC (0.0-0.2) 04/10/23 06:31 PT 25.7 SEC (11.1-13.3) H 04/10/23 10:41 INR 2.1 (0.9-1.1) H 04/10/23 10:41 Sodium 140 mmol/L (135-145) 04/08/23 11:19 Potassium 3.9 mmol/L (3.3-5.1) 04/08/23 11:19 Chloride 106 mmol/L (96-108) 04/08/23 11:19 Carbon Dioxide 24 mmol/L (22-29) 04/08/23 11:19 Anion Gap 14 (12-20) 04/08/23 11:19 BUN 13 mg/dL (9-16) 04/08/23 11:19 Creatinine 0.94 mg/dL (0.5-1.4) 04/08/23 11:19 Estim Creat Clear Calc 59.8 04/08/23 11:19 Estimated GFR 59 04/08/23 11:19 Random Glucose 103 mg/dL (60-115) 04/08/23 11:19 Lactic Acid 1.0 mmol/L (0.5-2.0) 04/08/23 14:35 Calcium 9.0 mg/dL (8.4-10.2) 04/08/23 11:19 Magnesium 2.3 mg/dL (1.6-2.6) 04/08/23 11:19 Total Bilirubin 0.5 mg/dL (0.0-1.0) 04/08/23 11:19 AST 21 U/L (5-31) 04/08/23 11:19 ALT 30 U/L (0-31) 04/08/23 11:19 Alkaline Phosphatase 72 U/L (39-117) 04/08/23 11:19 Total Protein 7.3 g/dL (6.5-8.0) 04/08/23 11:19 Albumin 3.9 g/dL (3.5-5.0) 04/08/23 11:19 Lipase 21 U/L (8-78) 04/08/23 14:35 Urine Color Yellow 04/08/23 11:19 Urine Appearance Turbid 04/08/23 11:19 Urine pH 5.5 (5.0-9.0) 04/08/23 11:19 Ur Specific [place] 1.020 (1.005-1.025) 04/08/23 11:19 Urine Protein Trace mg/dL (Neg-Trace) 04/08/23 11:19 Urine Glucose (UA) Negative mg/dL (Negative) 04/08/23 11:19 Urine Ketones Trace mg/dL (Negative) 04/08/23 11:19 Urine Blood Trace (Negative) H 04/08/23 11:19 Urine Nitrite Positive (Negative) H 04/08/23 11:19 Ur Leukocyte Esterase Large (3+) (Negative) H 04/08/23 11:19 Urine RBC 0-2 /HPF (0-2) 04/08/23 11:19 Urine WBC >50 /HPF (0-5) H 04/08/23 11:19 Ur Squamous Epith Cells 11-20 /HPF (0-2) 04/08/23 11:19 Urine Bacteria 4+ (None Seen) 04/08/23 11:19 Hyaline Casts 3-5 /LPF (0-2) 04/08/23 11:19 Influenza Type A (PCR) NEGATIVE (Negative) 04/09/23 07:04 Influenza Type B (PCR) NEGATIVE (Negative) 04/09/23 07:04 RSV RNA Qual (PCR) POSITIVE (Negative) A 04/09/23 07:04 SARS-CoV-2 RNA (RT-PCR) NEGATIVE (Negative) 04/09/23 07:04 Impressions Abdomen/Pelvis CT 04/08/23 14:53 IMPRESSION: Probable right rectus sheath hematoma measuring 2.7 x 4.8 cm. Advise clinical correlation and follow-up imaging. Discharge Plan Discharge Patient Disposition: Home, Self-Care Discharge Diagnosis: RSV infection urinary tract infection rectus sheath hematoma Referrals: Tonya Brady NP [Primary Care Provider] - 1 Week Karoline Garcia MD [Physician] - 1 Week Discharge Medications: New cefuroxime axetil 250 mg Tablet 250 mg PO BID Qty: 12 0RF benzonatate 100 mg Capsule 200 mg PO TID PRN (Reason: Cough) Qty: 60 0RF dextromethorphan polistirex 30 mg/5 mL suspension,extended rel 12 hr 10 ml PO Q12H PRN (Reason: cough) Qty: 89 0RF Continued lorazepam 1 mg tablet 1 mg PO BEDTIME PRN (Reason: Insomnia) albuterol sulfate 90 mcg/actuation HFA aerosol inhaler 2 puff inhalation QID PRN (Reason: wheezing) metoprolol tartrate 25 mg tablet 12.5 mg PO BEDTIME Changed tramadol 50 mg tablet 50 mg PO Q6H PRN (Reason: pain) Qty: 12 0RF Held warfarin 5 mg tablet 2.5 mg PO SUTUTHSA@1800 Hold Instructions: Resume on 04/15/23. warfarin 5 mg tablet 5 mg PO MOWEFR@1800 Hold Instructions: Resume on 04/15/23. Discharge Orders: Discharge Order (Routine); Ordered 04/10/23 Ordered By: Amanda Delgado Diet: Advance to usual diet Activity on Discharge: As tolerated Stand Alone Forms: Patient Portal Discharge page Care Plan Goals: recovery from RSV cure of UTI pain control and safe anticoagulation Health Concerns: RSV infection urinary tract infection rectus sheath hematoma Plan of Treatment: cough suppressants antibiotics for UTI hold warfarin until seen in clinic by General Surgery or by your primary care doctor. Consider restarting warfarin on 04/15/23. Please follow up with your primary care doctor within 1 week. Return to the hospital if you experience recurrent or worsening symptoms. Assessment: See Discharge Summary.
--- NOTE | 2023-04-10 12:07 | PC.NURSE ---
Assumed care of patient at 1100, pt is resting on bed with daughter at bedside.Plan is to discharge this afternoon after Dr. Garcia sees her. Pt offers no complaints, does report some abdominal pain
--- NOTE | 2023-04-10 14:05 | MHC.CM.PN ---
Patient will be discharged home today without services. Family will transport her.
== END 2023-04-10 14:11 | disposition home or self-care (01) ==
LOC: HO.ED 15:48 → HO.EDOVER 16:25
PROVIDERS: Internal Medicine; Physician Assistant Medical; Admitting Provider Internal Medicine; Emergency Provider Emergency Medicine; PCP Nurse Practitioner Family; Visit Provider Family Medicine
DX: M79.81 Nontraumatic hematoma of soft tissue (principal); R10.31 Right lower quadrant pain; R05.9 Cough, unspecified; I82.409 Acute embolism and thrombosis of unspecified deep veins of unspecified lower extremity; R19.00 Intra-abdominal and pelvic swelling, mass and lump, unspecified site; N39.0 Urinary tract infection, site not specified; Z79.01 Long term (current) use of anticoagulants; Z20.822 Contact with and (suspected) exposure to COVID-19; Z20.828 Contact with and (suspected) exposure to other viral communicable diseases; Z90.49 Acquired absence of other specified parts of digestive tract
CPT/HCPCS: 0241U; 36415; 74176; 80053; 81001; 83605; 83690; 83735; 85025; 85027; 85610; 87040; 87086; 87088; 87186; 96365; 96375; 96376; 99221; 99285; J0696; J1170; J2270; J2405

== ENCOUNTER → 2023-04-08 16:19 | Outpatient (BNV) | payer MEDICARE, OTHER, SELFPAY | PROVIDERS: Admitting Provider Internal Medicine; Emergency Provider Emergency Medicine; PCP Nurse Practitioner Family; Visit Provider Surgery | DX: S30.1XXA Contusion of abdominal wall, initial encounter (principal) | CPT/HCPCS: 99222 ==

== ENCOUNTER → 2023-04-08 16:19 | Outpatient (BNV) | payer MEDICARE, OTHER, SELFPAY | PROVIDERS: Admitting Provider Internal Medicine; Emergency Provider Emergency Medicine; PCP Nurse Practitioner Family; Visit Provider Internal Medicine | DX: S30.1XXA Contusion of abdominal wall, initial encounter (principal); N39.0 Urinary tract infection, site not specified | CPT/HCPCS: 99223; 99232; 99239 ==

== ENCOUNTER 2023-04-17 13:19 | Outpatient (REF) | payer MEDICARE, OTHER, SELFPAY ==
--- NOTE | ~2023-04-17 | US_ITS ---
EXAMINATION: US ABDOMEN LIMITED CLINICAL INFORMATION: Contusion abdominal wall, follow-up rectal sheath hematoma COMPARISON: 04/08/2023 CT TECHNIQUE: Real-time ultrasound used to interrogate the supraumbilical right abdomen. Permanent documented images obtained and cine loop provided. FINDINGS: In the subjacent tissues, 3.4 x 2.0 x 2.9 cm anechoic complicated fluid collection is seen and likely correlates with rectus sheath hematoma seen on recent CT. This measured 2.7 x 4.8 cm on 04/08/2023. US/US abdomen limited IMPRESSION: Slight decrease in size right rectus sheath hematoma.
== END 2023-04-17 13:20 | disposition home or self-care (01) ==
LOC: HO.US 13:19
PROVIDERS: PCP Nurse Practitioner Family; Visit Provider Nurse Practitioner Family
DX: S30.1XXD Contusion of abdominal wall, subsequent encounter (principal)
CPT/HCPCS: 76705